=== PATIENT | male | born 1990 | race Two or more races ===

== ENCOUNTER 2019-03-27 19:39 | Emergency (ER) | payer OTHER ==
[~2019-03-27] VITALS: Ht 175.3 cm; Wt 72.7 kg
[2019-03-27] MEDS ORDERED: IBUPROFEN 600 MG TABLET PO ONE (21:15)
[2019-03-27 21:30] VITALS: BP 115/80
== END 2019-03-27 21:41 | disposition home or self-care (01) ==
LOC: EMS 19:41
DX: M54.5 Low back pain (principal); F12.90 Cannabis use, unspecified, uncomplicated; V49.9XXA Car occupant (driver) (passenger) injured in unspecified traffic accident, initial encounter; Y93.89 Activity, other specified; Y92.89 Other specified places as the place of occurrence of the external cause; Y99.8 Other external cause status

== ENCOUNTER 2019-06-30 22:46 | Emergency (ER) | payer OTHER ==
[~2019-06-30] VITALS: Ht 175.3 cm; Wt 68.2 kg
[2019-06-30] MEDS ORDERED: SODIUM CHLORIDE 0.9% 1,000 ML IV ONE (23:45)
[2019-06-30] MEDS ORDERED: MORPHINE SULFATE 4 MG/ML SYRINGE IVP ONE (23:45)
[2019-06-30] MEDS ORDERED: ONDANSETRON HCL 4 MG/2 ML VIAL IVP ONE (23:45)
[2019-07-01] MEDS ORDERED: BACITRACIN/POLYMYXIN B 15 GM OINTMENT TP ONE
[2019-07-01 00:05] VITALS: BP 122/76
== END 2019-07-01 00:20 | disposition home or self-care (01) ==
LOC: EMS 22:46
DX: T20.20XA Burn of second degree of head, face, and neck, unspecified site, initial encounter (principal); T22.212A Burn of second degree of left forearm, initial encounter; T22.211A Burn of second degree of right forearm, initial encounter; T20.24XA Burn of second degree of nose (septum), initial encounter; F17.200 Nicotine dependence, unspecified, uncomplicated; F12.90 Cannabis use, unspecified, uncomplicated; X08.8XXA Exposure to other specified smoke, fire and flames, initial encounter; Y93.89 Activity, other specified; Y92.89 Other specified places as the place of occurrence of the external cause; Y99.8 Other external cause status
CPT/HCPCS: 99283; J2270; J2405; J7030